=== PATIENT | female | born 1995 | race Caucasian/White ===

== ENCOUNTER 2023-11-06 22:03 | Emergency (ER) | payer MEDICARE, MEDICAID, SELFPAY ==
[2023-11-06 22:03] VITALS: BP 158/108; PULSE 101; RESP 20; TEMP 36.1; O2SAT 96
--- NOTE | 2023-11-06 22:06 | ED.FEMALEGU ---
HPI - Female Genitourinary General Chief complaint: Urogenital-Female Stated complaint: yeast infection Time Seen by Provider: 11/06/23 22:05 History of Present Illness HPI Narrative: Patient is a 27 year old female with no PMH here today with vaginal pain and discharge. Patient notes that the symptoms have been present since Tuesday. She notes it seems to be worsening. The pain is burning in nature. She notes that last night she tried to clean her vagina with soap and use a medical douche without any help of her symptoms. The symptoms were worse today so she once again cleaned her vagina with soap and used a medical douche which actually worsened her symptoms. She notes it is burning severely which made her scream tonight when any water touched it prompting her visit to the ER. She has had some thick white discharge. She has irregular periods, is unsure of her last period. She has not been sexually active for several years. She believes she had some sort of vaginal bacterial infection in the past, unsure of what it was but it was mild and treated, denies current concern for STD. No fever or chills. She has burning when she pees but is unsure if this is due to her vagina or her urine. Related Data Allergies Allergy/AdvReac Type Severity Reaction Status Date / Time No Known Allergies Allergy Verified 11/06/23 22:06 [facility] Past Medical History Medical History (Updated 11/06/23 @ 23:38 by Liliane Llanes MD) Anxiety Surgical History Surgical History (Updated 10/29/19 @ 17:54 by Kurtis GarciaMD) No history of previous surgery Family History Family History (Updated 10/29/19 @ 17:54 by Kurtis GarciaMD) Father Diabetes mellitus Social History Social History (Updated 10/29/19 @ 17:55 by Kurtis Garcia*MD Verna) Smoking status: Never smoker Alcohol intake: never Substance use: never Exam Narrative: GENERAL: Well-appearing, well-nourished, and in no acute distress. HEAD: Normocephalic, atraumatic. EYES: PERRLA and EOMI. ENT: Nares clear. Mucous membranes moist. NECK: Supple. CHEST: Clear to auscultation. No respiratory distress. HEART: Regular rate and rhythm. Normal peripheral pulses. ABDOMEN: Soft, nontender, nondistended. : (exam performed with jesusita as service inspector) Tender speculum exam, no obvious external lesions appreciated. Some thick white cervical discharge is appreciated. No CMT. EXTREMITIES: Normal range of motion. No edema. SKIN: Warm, dry, no rash. NEURO: No focal deficits. Alert and oriented x3. PSYCH: Normal mood and affect. Course Course Emergency Course: Chart review performed. Patient here with vaginal discharge and burning pain. Triage vitals grossly normal. She appears to have had an ED visit about a week ago for chest pain and anxiety, had a negative workup and was discharged home. Patient seen and evaluated, non toxic appearing. Concern for vaginitis due to yeast, BV, less likely STD given not sexually active for several years. Will additionally check for , UTI and check BG given undiagnosed diabetes would escalate her risk of yeast infections. BG mildly elevated at 261, will advise her to be rechecked through her PCP. Pelvic exam shows some thick whiteish yellow discharge in the vagina. Unable to perform wet prep at this hospital. Will start on coverage for BV and yeast vaginitis. Dose of flagyl given here and fluconazole. Will discharge on flagyl. Discussion with patient regarding any potential risk for STI, she does not believe she could have an STD. She would like to await results and not treat prophylactically. Advise to follow results with her patient portal and return should she be positive for additional treatment. negative. Will additionally treat for UTI although specimen is contaminated. Will provide patient with second dose of fluconazole to take after completion of her antibiotics if her vaginal itching and discharge return. The
[2023-11-06 22:39] LABS: Glucose Point of Care 261 mg/dl (65-105)
[2023-11-06 23:01] LABS: Bilirubin Urine Negative (Negative); Blood Urine 2+ (Negative); Color Urine Light Yellow (Yellow); Glucose Urine UA 2+ (Negative); Ketones Urine 1+ (Negative); Leukocyte Esterase Ur 1+ LEU/UL (Negative); Nitrate Urine Negative (Negative); Protein Urine 2+ (Negative); Specific Grav Ur >= 1.030 (1.010-1.020); Urobilinogen Urine 0.2 mg/dL (0.2-1.0)
[2023-11-06] MEDS: FLUCONAZOLE 150 MG TABLET PO (23:23)
[2023-11-06] MEDS: metroNIDAZOLE 250 MG TABLET 500 MG PO (23:23)
[2023-11-06 23:29] LABS: Add Urine Microscopic? YES; Amorphous Sediment Urine Moderate; Bacteria Urine 3+ /hpf; Squamous Epithelial Cell Urine Many /hpf (Few); WBC Clumps Urine Present /hpf; WBC Urine 31-50 /hpf (0-3)
[2023-11-06 23:30] LABS: Appearance Urine Turbid (Clear); Mucus Urine Moderate /lpf; Pregnancy On Board Control Positive; Urine Pregnancy Test Negative
[2023-11-06 23:45] VITALS: BP 144/87; PULSE 92; RESP 20; O2SAT 97
[2023-11-07 08:30] LABS: Chlamydia trachomatis NOT DETECTED (NOT DETECTE); Neisseria gonorrhoeae PCR NOT DETECTED (NOT DETECTE)
[2023-11-09 08:34] LABS: Trichomonas Vag PCR NOT DETECTED (NOT DETECTE)
--- NOTE | 2023-11-09 13:05 | PC.NURSE ---
FINAL URINE CULTURE RESULTS: ISOLATE 1: [id number] CFU/ML OF GROUP B STREP. PER DR DANG NO CHANGE IN [place] NEEDED.
== END 2023-11-06 23:55 | disposition home or self-care (01) ==
PROVIDERS: Emergency Provider Student in an Organized Health Care Education/Training Program; PCP Physician Assistant
DX: N76.0 Acute vaginitis (principal); N30.00 Acute cystitis without hematuria; Z11.3 Encounter for screening for infections with a predominantly sexual mode of transmission
CPT/HCPCS: 81001; 81025; 82948; 87077; 87086; 87088; 87491; 87591; 87661; 99284; A9270